=== PATIENT | female | born 1970 | race Caucasian/White ===

== ENCOUNTER 2022-02-20 15:23 | Emergency (ER) | payer OTHER ==
[~2022-02-20] VITALS: Ht 170.2 cm; Wt 93.0 kg
[2022-02-20] MEDS ORDERED: ACETAMINOPHEN 325 MG TAB PO ONE (15:45)
[2022-02-20] MEDS ORDERED: ACETAMINOPHEN 325 MG TAB ONE (15:59)
== END 2022-02-20 16:15 | disposition home or self-care (01) ==
LOC: FSED 15:40
DX: R50.9 Fever, unspecified (principal); U07.1 COVID-19; J45.909 Unspecified asthma, uncomplicated
CPT/HCPCS: 99282